=== PATIENT | male | born 1990 | race Caucasian/White ===

== ENCOUNTER 2021-06-22 16:28 | Emergency (ER) | payer MEDICAID, OTHER ==
[~2021-06-22] VITALS: Ht 170.2 cm; Wt 66.0 kg
[~2021-06-22 16:28] MED LIST: NOCURR
[2021-06-22 18:19] VITALS: BP 127/77
== END 2021-06-22 22:26 | disposition home or self-care (01) ==
LOC: EMS 16:33
DX: F11.10 Opioid abuse, uncomplicated (principal); Z88.0 Allergy status to penicillin
CPT/HCPCS: 99283; Z7502